=== PATIENT | male | born 1995 | race African-American/Black ===

== ENCOUNTER 2018-06-16 10:06 | Emergency (ER) | payer MEDICAID ==
[~2018-06-16] VITALS: Ht 180.3 cm; Wt 68.2 kg
[2018-06-16 10:12] VITALS: Ht 180.3 cm; Wt 68.2 kg
[2018-06-16 10:47] LABS: APPEARANCE CLOUDY (CLEAR); COLOR YELLOW (YELLOW); SPECIFIC GRAVITY 1.015 (1.005-1.020)
[2018-06-16 10:48] LABS: BILIRUBIN NEGATIVE (NEGATIVE); GLUCOSE NEGATIVE (NEGATIVE); KETONE NEGATIVE (NEGATIVE); NITRITE NEGATIVE (NEGATIVE); PROTEIN TRACE mg/dL (NEGATIVE); UROBILINOGEN NORMAL (NORMAL)
[2018-06-16 10:50] LABS: EPITHELIAL CELLS 0-5 /hpf (0-5); RED CELLS - URINE OCC /hpf (0-5); WHITE CELLS - URINE >50 /hpf (0-5)
[2018-06-16 10:51] LABS: AMORPHOUS SEDIMENT <1+ /lpf (NONE SEEN); BACTERIA MODERATE /hpf (NONE SEEN); MUCUS <1+ /lpf (NONE SEEN)
[2018-06-16] MEDS ORDERED: FLAGYL500 MG PO (11:04)
[2018-06-16 12:25] VITALS: BP 125/078
== END 2018-06-16 12:28 | disposition home or self-care (01) ==
LOC: EDBD 10:06 → D.ER 10:06
PROVIDERS: Family Medicine
DX: N34.2 Other urethritis (principal)